=== PATIENT | female | born 1990 | race Two or more races ===

== ENCOUNTER 2023-07-31 20:36 | Emergency (ER) | payer SELFPAY ==
[2023-07-31 20:49] VITALS: BP 186/100; PULSE 96; TEMP 37.3; O2SAT 100; BMI 36.8
--- NOTE | 2023-07-31 21:54 | ED.GENADUL1 ---
HPI HPI - General Adult General Chief complaint: Urogenital-Female Stated complaint: HIV exposure Time Seen by Provider: 07/31/23 21:39 Source: patient Mode of arrival: walk-in Limitations: no limitations History of Present Illness HPI narrative: 33-year-old female presents because she was concerned about carla HIV. 48 hours ago she cleaned up some dried blood on the floor with an alcohol wipe. She did not have any cuts on her hands or elsewhere and she did not have any other exposure. She has no symptoms. Opioid HPI Opioid Management Most Recent Opioid Data: No Data to Display Review of Systems ROS Narrative A ten point review of systems is negative except as noted above. Exam Narrative Exam Narrative: Nurses note and vital signs reviewed and patient is not hypoxic. General: The patient appears well and in no apparent distress. Patient is resting comfortably on cart. Skin: Warm, dry, no pallor noted. There is no rash noted. Head: Normocephalic, atraumatic Eye: Normal conjunctiva, no drainage Ears, Nose, Mouth, and Throat: oral mucosa is moist. Nares patent. Cardiovascular: Regular Rate and Rhythm Respiratory: Patient is in no distress, no accessory muscle use Back: non-tender GI: Soft and nontender Musculoskeletal: The patient has no evidence of calf tenderness, no pitting edema, symmetrical pulses noted bilaterally Neurological: Awake and Psychiatric: Cooperative Constitutional Vital Signs, click to edit/add: Last Vital Signs Temp 99.1 F 07/31/23 20:49 Pulse 96 H 07/31/23 20:49 Resp 16 07/31/23 20:49 BP 186/100 H 07/31/23 20:49 Pulse Ox 100 07/31/23 20:49 O2 Del Method Room Air 07/31/23 20:49 Course Vital Signs Vital signs: Vital Signs Temperature 99.1 F 07/31/23 20:49 Pulse Rate 96 H 07/31/23 20:49 Respiratory Rate 16 07/31/23 20:49 Blood Pressure 186/100 H 07/31/23 20:49 Pulse Oximetry 100 07/31/23 20:49 Oxygen Delivery Method Room Air 07/31/23 20:49 Temperature 99.1 F 07/31/23 20:49 Pulse Rate 96 H 07/31/23 20:49 Respiratory Rate 16 07/31/23 20:49 Blood Pressure 186/100 H 07/31/23 20:49 Pulse Oximetry 100 07/31/23 20:49 Oxygen Delivery Method Room Air 07/31/23 20:49 Medical Decision Making MDM Narrative Medical decision making narrative: This patient did not have a significant exposure and does not require testing or PEP. She is discharged home and was reassured. Treatment diagnosis and follow-up were discussed with the patient. Discharge Plan Discharge Stand Alone Forms: Portal Instructions Chief Complaint: Urogenital-Female Clinical Impression: No problem, feared complaint unfounded Patient Disposition: Home, Self-Care Time of Disposition Decision: 21:46 Condition: Good Mode of Transportation: Private Vehicle Print Language: Indonesian Referrals: VALARIE CAMERON [Primary Care Provider] - 1 week
== END 2023-07-31 21:57 | disposition home or self-care (01) ==
PROVIDERS: Emergency Provider Emergency Medicine; PCP Family Medicine
DX: Z71.1 Person with feared health complaint in whom no diagnosis is made (principal)
CPT/HCPCS: 99281

== ENCOUNTER 2024-03-05 06:26 | Emergency (ER) | payer OTHER, SELFPAY ==
[2024-03-05 06:29] VITALS: BP 180/120; PULSE 94; TEMP 37.2; O2SAT 100; BMI 34.5
--- OUTSIDE RECORDS SUMMARY | 2024-03-05 06:36 | XMS_ITS | CCD ---
Author Organization [facility] Care Team Providers Care Engineering Surveyor Name Role Phone JEFF PARADA Attending Unavailable JEFF PARADA Consulting Unavailable JEFF PARADA Primary Care Unavailable JEFF PARADA Admitting Unavailable Jeff Parada DO Primary Care Provider [phone] JEFF PARADA Attending Unavailable JEFF PARADA Referring Unavailable JEFF PARADA Primary Care Unavailable CLIVE HORTON Attending Unavailable JEFF PARADA Referring Unavailable JEFF PARADA Primary Care Unavailable Jeff Parada MD Primary Care Provider [phone] JEFFERY MASON Attending Unavailable Allergies Allergy Classification Reported Allergen(s) Allergy Type Date of Onset Reaction(s) Facility (2 sources) Lisinopril; Translations: [LISINOPRIL] Drug Allergy 02-02-2021 [facility] Work Phone: Medications Current Medications Medication Drug Class(es) Dates Sig (Normalized) Sig (Original) Calcium Carb-Cholecalciferol (CALCIUM CARBONATE-VITAMIN D3 PO) (2 sources) take 1 tablet by mouth in the morning Calcium Carb-Cholecalciferol (CALCIUM CARBONATE-VITAMIN D3 PO) Take 1 tablet by mouth in the morning and 1 tablet in the evening. Take with meals. Active calcium carbonate 1250 mg / cholecalciferol 200 unt oral tablet (1 source) Vitamin D take 1 tablet by mouth once daily in the morning, then take 1 tablet by mouth once at mealtime calcium carbonate-vitamin D3 (CALCIUM 500 + D) 500 mg(1,250mg) -200 units per tablet Take 1 tablet by mouth in the morning and 1 tablet in the evening. Take with meals. Active cetirizine hydrochloride 10 mg oral tablet (3 sources) Histamine-1 Receptor Antagonist Start: 10-20-202 4 cetirizine (ZyrTEC) 10 MG tablet Take 10 mg by mouth 12/10/2023 Active cyclobenzaprine hydrochloride 10 mg oral tablet (3 sources) Muscle Relaxant Start: 4 End: 4 take 1 tablet by mouth every eight hours as needed cyclobenzaprine (Flexeril) 10 MG tablet Take 10 mg by mouth every 8 (eight) hours if needed for muscle spasms 09/07/2023 Active DULoxetine 30 mg delayed release oral capsule (3 sources) Serotonin and Norepinephrine Reuptake Inhibitor Start: 4 End: 4 take 1 capsule by mouth in the morning DULoxetine (Cymbalta) [address] capsule TAKE 1 CAPSULE (30 MG TOTAL) BY MOUTH IN THE MORNING 09/07/2023 Active fluconazole 150 mg oral tablet (3 sources) Azole Antifungal Start: 4 End: 4 take 1 tablet by mouth in the morning fluconazole (Diflucan) 150 MG tablet TAKE 1 TABLET (150 MG TOTAL) BY MOUTH IN THE MORNING FOR 7 DOSES. 01/03/2024 Active methylPREDNISolone (1 source) Corticosteroid Start: 4 methylPREDNISolone (MEDROL, LIZ,) 4 mg tablet Indications: Dermatitis follow package directions 21 tablet 01/03/2024 Active mometasone furoate 1 mg/ml topical cream (4 sources) Corticosteroid Start: 4 mometasone (Elocon) 0.1 % cream Apply 1 application topically Daily 01/03/2024 Active Start: 01-03-2024 mometasone (EL BRIANA) 0.1 % cream Indications: Dermatitis Apply topically daily. 45 g 1 01/03/2024 Active Start: 11-13-2023 End: 01-03-2024 mometasone (ELOCON) 0.1 % cr eam APPLY A THIN FILM TO THE AFFECTED AREAS ON ARMS BY TOPICAL ROUTE TWICE DAILY NEEDED AVOID FACE 11/13/2023 01/03/2024 Discontinued (Reorder) vit 10-iron fum-folic 65-1 mg tablet (1 source) Start: 05-18-2021 take 1 tablet by mouth in the morning vit 10-iron fum-folic 65-1 mg tablet Indications: History of sleeve gastrectomy , Postsurgical malabsorption , Malnutrition following gastrointestinal surgery Take 1 tablet by mouth in the morning. 90 tablet 3 05/18/2021 Active valACYclovir 1000 mg oral tablet (3 sources) Herpesvirus Nucleoside Analog DNA Polymerase Inhibitor, Herpes Simplex Virus Nucleoside Analog DNA Polymerase Inhibitor, Herpes Zoster Virus Nucleoside Analog DNA Polymerase Inhibitor Start: 09-07-2023 valACYclovir (Valtrex) 1 g tablet Take 2,000 mg by mouth in the morning and 2,000 mg in the evening. 09/07/2023 Active Start: 09-07-2023 take 2 tablets by mo uth in the morning, then take 2 tablets by mouth at bedtime valACYclovir (VALTREX) 1000 mg tablet Indications: Herpesviral gingivostomatitis and pharyngotonsillitis Take 2 tablets (2,000 mg total) by mouth in the morning and 2 tablets (2,000 mg total) before bedtime. 12 tablet 5 09/07/2023 Active vitamin b12 1 mg sublingual tablet (1 source) Vitamin B12 Start: 05-12-2021 take 1 tablet under the tongue in the morning cyanocobalamin (VITAMIN B12) 1,000 mcg tablet, sublingual Indications: History of sleeve gastrectomy , Postsurgical malabsorption , Malnutrition following gastrointestinal surgery , Vitamin B12 deficiency Place 1 tablet (1,000 mcg total) under the tongue in the morning. 90 tablet 3 05/12/2021 Active Completed/Discontinued Medications Medication Drug Class(es) Dates Sig (Normalized) Sig (Original) docusate sodium 100 mg oral capsule (1 source) End: 01-03-2024 take 1 capsule by mouth in the morning, then take 1 capsule by mouth at bedtime docusate sodium (COLACE) 100 mg capsule Take 1 capsule (100 mg total) by mouth in the morning and 1 capsule (100 mg total) before bedtime. 01/03/2024 Discontinued (Therapy completed) phentermine hydrochloride 37.5 mg oral capsule (1 source) Sympathomimetic Amine Anorectic Start: 09-07-2023 End: 01-03-2024 take 34-34.9 capsules by mouth once daily before breakfast phentermine 37.5 MG capsule Indications: Class 1 obesity due to excess calories without serious comorbidity with body mass index (BMI) of 34.0 to 34.9 in adult Take 1 capsule (37.5 mg total) by mouth every morning before breakfast. 30 capsule 09/07/2023 01/03/2024 Discontinued (Therapy completed) Problems Active Problems Problem Classification Problem Date Documented Date Episodic/Chronic Allergic reactions (2 sources) Flexural atopic dermatitis; Translations: [Other atopic dermatitis] 01-31-2024 Chronic Allergic reactions (2 sources) Inflammatory dermatosis; Translations: [Dermatitis, unspecified] Onset: 01-03-2024 01-03-2024 Episodic Anxiety disorders (1 source) Anxiety; Translations: [Anxiety disorder, unspecified] Onset: 09-07-2015 02-02-2021 Chronic Esophageal disorders (1 source) Gastroesophageal reflux disease without esophagitis; Translations: [Gastro-esophageal reflux disease without esophagitis] Onset: 01-16-2018 02-02-2021 Chronic Mood disorders (1 source) Depressive disorder; Translations: [Depressive disorder] Onset: 09-07-2015 02-02-2021 Chronic Other nutritional; endocrine; and metabolic disorders (1 source) Other obesity due to excess calories; Translations: [Other obesity due to excess calories] Onset: 09-07-2023 Chronic Other nutritional; endocrine; and metabolic disorders (1 source) Body mass index (BMI) 34.0-34.9, adult; Translations: [Body mass index (BMI) 34.0-34.9, adult] Onset: 09-07-2023 Chronic Other upper respiratory infections (1 source) Acute pharyngitis, unspecified; Translations: [ACUTE PHARYNGITIS UNSPECIFIED] Onset: 02-13-2020 Episodic Unclassified (1 source) COVID-19; Translations: [COVID-19] Onset: 02-13-2020 Unclassified (1 source) Rash Onset: 01-03-2024 Unclassified (1 source) Annual Exam Onset: 09-07-2023 Past or Other Problems Problem Classification Problem Date Documented Date Episodic/Chronic Bacterial infection; unspecified site (1 source) Bacteria present; Translations: [Streptococcus, group B, as the cause of diseases classified elsewhere] Onset: 8 Resolved: 8 07-06-2017 Episodic Heart valve disorders (1 source) Cardiac murmur, unspecified; Translations: [Cardiac murmur, unspecified] Onset: Episodic Immunizations and screening for infectious disease (4 sources) Contact with and (suspected) exposure to other viral communicable diseases; Translations: [Antibody studies abnormal] Onset: 0 07-07-2021 Episodic Malaise and fatigue (1 source) Fatigue; Translations: [Other fatigue] Onset: 8 01-16-2018 Episodic Mood disorders (1 source) Mood disorders Onset: 4 01-03-2024 Other bone disease and musculoskeletal deformities (1 source) Somatic dysfunction of thoracic region; Translations: [Segmental and somatic dysfunction of thoracic region] Onset: 4 09-07-2023 Episodic Other bone disease and musculoskeletal deformities (1 source) Cervical somatic dysfunction; Translations: [Segmental and somatic dysfunction of cervical region] Onset: 4 09-07-2023 Episodic Other bone disease and musculoskeletal deformities (1 source) Segmental and somatic dysfunction of cervical region; Translations: [Segmental and somatic dysfunction of cervical region] Onset: 4 Episodic Other bone disease and musculoskeletal deformities (1 source) Segmental and somatic dysfunction of thoracic region; Translations: [Segmental and somatic dysfunction of thoracic region] Onset: 4 Episodic Other nutritional; endocrine; and metabolic disorders (1 source) Body mass index 40+ - severely obese; Translations: [Morbid (severe) obesity due to excess calories] Onset: 8 Resolved: 2 05-11-2021 Chronic Other nutritional; endocrine; and metabolic disorders (1 source) Morbid obesity; Translations: [Morbid (severe) obesity due to excess calories] Onset: 2 Resolved: 2 05-11-2021 Chronic Other nutritional; endocrine; and metabolic disorders (1 source) Obese class II; Translations: [Obesity, Class II, BMI 35-39.9] Onset: 2 Resolved: 2 11-23-2021 Chronic Other screening for suspected conditions (not mental disorders or infectious disease) (1 source) Partial thromboplastin time increased; Translations: [Abnormal coagulation profile] Onset: 2 07-07-2021 Episodic Residual codes; unclassified (1 source) History of sleeve gastrectomy; Translations: [Acquired absence of stomach [part of]] Onset: 2 11-23-2021 Episodic Unclassified (1 source) Onset: 4 01-03-2024 Viral infection (1 source) Herpesviral gingivostomatitis and pharyngotonsillitis; Translations: [Herpesviral gingivostomatitis and pharyngotonsillitis] Onset: 4 Episodic Results Test Name Value Interpretation Reference Range Facil ity [facility] Covid-19 DETECTED Abnormal NOT DETECTED The [facility] Comment on above: Result Comment: This test is not yet approved or cleared by the [place] FDA. When there are no FDA-approved or cleared tests available, and other criteria are met, FDA can make tests available under an emergency access mechanism called an Emergency Use Authorization (EUA). The EUA for this test is supported by the Research Program Internship of Health and Human Service's (HHS's) declaration that circumstances exist to justify the emergency use of in vitro diagnostics for the detection and/or diagnosis of the virus that causes COVID-19. This EUA will remain in effect (meaning this test can be used) for the duration of the COVID-19 declaration justifying emergency of IVDs, unless it is terminated or revoked by FDA (after which the test may no longer be used). Performed By: #### [facility] #### [facility] [address] [place] [address] Viki Healy EUA Statement SEE BELOW Normal The [facility] Comment on above: Result Comment: This test is not yet approved or cleared by the [place] FDA. When there are no FDA-approved or cleared tests available, and other criteria are met, FDA can make tests available under an emergency access mechanism called an Emergency Use Authorization (EUA). The EUA for this test is supported by the [place] of Health and Human Service?s (HHS?s) declaration that circumstances exist to justify the emergency use of in vitro diagnostics for the detection and/or diagnosis of the virus that causes COVID-19. This EUA will remain in effect (meaning this test can be used) for the duration of the COVID-19 declaration justifying emergency of IVDs, unless it is terminated or revoked by FDA (after which the test may no longer be used). When diagnostic testing is negative, the possibility of a false negative should be considered in the context of a patients recent exposures and the presence of clinical signs and symptoms consistent with SARS-CoV-2. Performed By: #### [facility] #### [facility] [address] [place], [place] [id number] Viki Healy Vital Signs Date Time Vital Sign Value Performing Clinician Facility 01-31-2024 14:29-0500 Body height 144.8 cm Jeffery Mason MD Work Phone: [facility] 01-31-2024 14:29-0500 Body mass index (BMI) [Ratio] 37 kg/m2 Jeffery Mason MD Work Phone: [facility] 01-31-2024 14:29-0500 Body weight 77.56 kg Jeffery Mason MD Work Phone: [facility] 01-03-2024 14:03-0500 Body height 149.9 cm Clive Horton APRN-RECORDS AND INFORMATION MANAGER Work Phone: [facility] 01-03-2024 14:03-0500 Body mass index (BMI) [Ratio] 34.78 kg/m2 Clive Horton COMPUTER DISCOVERY TEACHER-RECORDS AND INFORMATION MANAGER Work Phone: [facility] 01-03-2024 14:03-0500 Body temperature 98.71 [degF] Clive Horton COMPUTER DISCOVERY TEACHER-RECORDS AND INFORMATION MANAGER Work Phone: [facility] 01-03-2024 14:03-0500 Body weight 78.11 kg Cliverod Horton COMPUTER DISCOVERY TEACHER-RECORDS AND INFORMATION MANAGER Work Phone: [facility] 01-03-2024 14:03-0500 Diastolic blood pressure 88 mm[Hg] Clive Horton APRN-RECORDS AND INFORMATION MANAGER Work Phone: [facility] 01-03-2024 14:03-0500 Heart rate 83 /min Clive Horton APRN-RECORDS AND INFORMATION MANAGER Work Phone: [facility] 01-03-2024 14:03-0500 Respiratory rate 18 /min Clive Horton APRN-RECORDS AND INFORMATION MANAGER Work Phone: [facility] 01-03-2024 14:03-0500 SaO2% (BldA) [Mass fraction] 100 % Clive Horton MELANIE-RECORDS AND INFORMATION MANAGER Work Phone: [facility] 01-03-2024 14:03-0500 Systolic blood pressure 140 mm[Hg] Clive Horton MELANIE-RECORDS AND INFORMATION MANAGER Work Phone: [facility] Encounters Encounter Date Encounter Type Care Provider Facility Start: 01-31-2024 End: 01-31-2024 Office outpatient new 30 minutes Jeffery Mason MD Work Phone: [facility] Comment on above: Flexural atopic derm atitis (Primary Dx) Start: 01-31-2024 End: 01-31-2024 ambulatory JEFFERY MASON Not Available Start: 01-31-2024 End: 01-31-2024 Bamboo flowsheet Jeffery Mason MD Work Phone: [facility] Start: 01-31-2024 End: 01-31-2024 Bamboo flowsaniceto Mason MD Work Phone: [facility] Start: 01-03-2024 End: 01-03-2024 Office outpatient visit 15 minutes Clive Tish Horton APRN-RECORDS AND INFORMATION MANAGER Work Phone: [facility] Comment on above: Dermatitis (Primary Dx) Start: 01-03-2024 End: 01-03-2024 ambulatory [facility] Start: 09-07-2023 End: 09-07-2023 ambulatory [facility] Start: 09-07-2023 Encounter for genera l adult medical examination without abnormal findings [facility] Start: 01-28-2020 End: 01-29-[address] [facility] Facility:H1 Procedures Date Procedure Procedure Detail Performing Clinician Start: 01-03-2024 Adult depression scr eening assessment Clive Salassamson NAVARRO-RECORDS AND INFORMATION MANAGER Work Phone: Start: 02-02-2021 Microscopic observat ion [Identifier] in Cervix by Cyto stain Clive ALLEN Work Phone: Plan of Treatment Date Care Activity Detail Author Start: 01-02-2025 Adult BMI Screening Adult BMI Screen ing [facility] Start: 01-02-2025 Depression Screening Depression Scre ening [facility] Start: 01-02-2025 Screening for malign ant neoplasm of cervix [facility] Start: 01-02-2025 Tobacco Screening Tobacco Screening [facility] Start: 03-18-2024 End: 03-18-2024 Patient encounter procedure 03/18/2024 3:20 PM EST Office Visit [facility] [address] [place] [phone] Jeffery Mason MD [address] [place] [address] [facility] Start: 03-13-2024 End: 03-13-2024 Patient encounter procedure 03/13/2024 2:20 PM EST Office Visit [facility] [address] [place] [phone] Jeffery Mason MD [address] [place] [address] [facility] Start: 03-11-2024 End: 03-11-2024 Patient encounter procedure 03/11/2024 2:20 PM EST Office Visit [facility] [address] [place] [phone] Jeffery Mason MD [address] [place] [address] [facility] Start: 02-03-2024 Screening for malign ant neoplasm of cervix Pap Smear [facility] Start: 01-31-2024 End: 01-31-2024 Patient encounter procedure 01/31/2024 2:20 PM EST Office Visit [facility] [address] [place] [phone] Jeffery Mason MD [address] [place] [address] Arrived [facility] Comment on above: Arrived Start: 10-22-2023 COVID-19 Vaccine () COVID-19 Vaccine () [facility] Start: 10-22-2023 Influenza vaccination P [facility] Start: 01-29-2023 DTaP,Tdap and Td Vaccines (7 - Td or Tdap) DTaP,Tdap and Td Vaccines (7 - Td or Tdap) [facility] Start: 01-26-2009 Screening for malign ant neoplasm of cervix Pap Smear [facility] Start: 01-26-2006 Adult BMI Follow Up Plan Adult BMI Follow Up Plan [facility] Immunizations Immunization Date Immunization Notes Care Provider Fa [facility] 12-14-2022 tuberculin skin test ; purified protein derivative solution, intradermal Clive Horton COMPUTER DISCOVERY TEACHER-RECORDS AND INFORMATION MANAGER Work Phone: [facility] 03-06-2021 Covid-19, Mrna, Lnp- s, Pf, 30 Mcg/0.3 Ml Dose, Darrius-sucrose Clive Horton COMPUTER DISCOVERY TEACHER-RECORDS AND INFORMATION MANAGER Work Phone: [facility] 03-06-2021 Seasonal, quadrivalent, recombinant, injectable influenza vaccine, preservative free Clive Horton COMPUTER DISCOVERY TEACHER-RECORDS AND INFORMATION MANAGER Work Phone: [facility] 03-06-2021 influenza virus vaccine, unspecified formulation Clive Horton COMPUTER DISCOVERY TEACHER-RECORDS AND INFORMATION MANAGER Work Phone: [facility] 02-22-2021 COVID-19, mRNA, LNP- S, PF, 30mcg/0.3mL Dose Clive Horton COMPUTER DISCOVERY TEACHER-RECORDS AND INFORMATION MANAGER Work Phone: [facility] 12-16-2020 influenza, injectabl e, quadrivalent, contains preservative Clive Horton COMPUTER DISCOVERY TEACHER-RECORDS AND INFORMATION MANAGER Work Phone: [facility] 12-11-2020 COVID-19, mRNA, LNP- S, PF, 30mcg/0.3mL Dose Clive Horton COMPUTER DISCOVERY TEACHER-RECORDS AND INFORMATION MANAGER Work Phone: [facility] 12-06-2019 influenza, injectabl e, quadrivalent, preservative free Clive Horton COMPUTER DISCOVERY TEACHER-RECORDS AND INFORMATION MANAGER Work Phone: [facility] 01-21-2016 influenza virus vaccine, unspecified formulation Clive Horton COMPUTER DISCOVERY TEACHER-RECORDS AND INFORMATION MANAGER Work Phone: [facility] 02-22-2013 varicella virus vaccine Clive Horton COMPUTER DISCOVERY TEACHER-RECORDS AND INFORMATION MANAGER Work Phone: [facility] 01-29-2013 tetanus toxoid, reduced diphtheria toxoid, and acellular pertussis vaccine, adsorbed Clive Horton COMPUTER DISCOVERY TEACHER-RECORDS AND INFORMATION MANAGER Work Phone: [facility] 01-25-2013 tetanus toxoid, reduced diphtheria toxoid, and acellular pertussis vaccine, adsorbed Clive Horton COMPUTER DISCOVERY TEACHER-RECORDS AND INFORMATION MANAGER Work Phone: [facility] 10-06-2000 hepatitis B vaccine, pediatric or pediatric/adolescent dosage Clive Horton COMPUTER DISCOVERY TEACHER-RECORDS AND INFORMATION MANAGER Work Phone: [facility] 05-08-2000 hepatitis B vaccine, pediatric or pediatric/adolescent dosage Clive Horton COMPUTER DISCOVERY TEACHER-RECORDS AND INFORMATION MANAGER Work Phone: [facility] 04-07-2000 hepatitis B vaccine, pediatric or pediatric/adolescent dosage Clive Horton COMPUTER DISCOVERY TEACHER-RECORDS AND INFORMATION MANAGER Work Phone: [facility] 04-07-2000 measles, mumps and rubella virus vaccine Clive Horton COMPUTER DISCOVERY TEACHER-RECORDS AND INFORMATION MANAGER Work Phone: [facility] 10-08-1992 diphtheria, tetanus toxoids and pertussis vaccine Clive Horton COMPUTER DISCOVERY TEACHER-RECORDS AND INFORMATION MANAGER Work Phone: [facility] 10-08-1992 trivalent poliovirus vaccine, live, oral Clive Horton COMPUTER DISCOVERY TEACHER-RECORDS AND INFORMATION MANAGER Work Phone: [facility] 05-03-1989 diphtheria, tetanus toxoids and pertussis vaccine Clive Horton COMPUTER DISCOVERY TEACHER-RECORDS AND INFORMATION MANAGER Work Phone: [facility] 05-03-1989 measles, mumps and rubella virus vaccine Clive Horton COMPUTER DISCOVERY TEACHER-RECORDS AND INFORMATION MANAGER Work Phone: [facility] 05-03-1989 trivalent poliovirus vaccine, live, oral Clive Horton COMPUTER DISCOVERY TEACHER-RECORDS AND INFORMATION MANAGER Work Phone: [facility] 1988 trivalent poliovirus vaccine, live, oral Clive Horton COMPUTER DISCOVERY TEACHER-RECORDS AND INFORMATION MANAGER Work Phone: [facility] 1988 diphtheria, tetanus toxoids and pertussis vaccine Clive Horton COMPUTER DISCOVERY TEACHER-RECORDS AND INFORMATION MANAGER Work Phone: [facility] 1988 trivalent poliovirus vaccine, live, oral Clive Horton COMPUTER DISCOVERY TEACHER-RECORDS AND INFORMATION MANAGER Work Phone: [facility] 1988 diphtheria, tetanus toxoids and pertussis vaccine Clive Horton COMPUTER DISCOVERY TEACHER-RECORDS AND INFORMATION MANAGER Work Phone: [facility] 1988 trivalent poliovirus vaccine, live, oral Clive Horton COMPUTER DISCOVERY TEACHER-RECORDS AND INFORMATION MANAGER Work Phone: [facility] NEGATED: Highlighted row has not occurred!05-27-2017 measles, mumps and rubella virus vaccine Clive Horton COMPUTER DISCOVERY TEACHER-RECORDS AND INFORMATION MANAGER Work Phone: [facility] Comment on above: Deferred: - pt immun e NEGATED: Highlighted row has not occurred!05-27-2017 tetanus toxoid, reduced diphtheria toxoid, and acellular pertussis vaccine, adsorbed Clive Horton COMPUTER DISCOVERY TEACHER-RECORDS AND INFORMATION MANAGER Work Phone: [facility] NEGATED: Highlighted row has not occurred!05-27-2017 varicella virus vaccine Clive Horton COMPUTER DISCOVERY TEACHER-RECORDS AND INFORMATION MANAGER Work Phone: [facility] Payers Date Payer Category Payer [employer] [id number] 2022 [employer] - PPO ANTHEM [id number] 2022 Unknown [id number] 1988 Unknown [id number] 1988 Unknown [id number] 1988 Unknown [id number] 1988 Unknown [id number] 1959 Unknown [id number] Social History Date Type Detail Facility Start: 03-01-2017 End: 01-31-2024 Tobacco smoking status NHIS Never smoked tobacco [facility] Start: 03-01-2017 End: 01-31-2024 Tobacco use and exposure Smokeless tobacco non-user [facility] Start: 01-03-2024 Alcoholic beverage intake Ex-drinker (finding) [facility] Start: 09-07-2023 End: 01-31-2024 History of Social function [facility] Start: 09-07-2023 End: 01-31-2024 [facility] Utilities [facility] Has the [employer], or water [employer] threatened to shut off services in your home in past 12Mo No [facility] Are you now , , , , never or living with a partner? [facility] How often to you hav e a drink containing alcohol? 2-4 times a month [facility] How many standard drinks containing alcohol do you have on a typical day? 1 or 2 [facility] How often do you hav e 6 or more drinks on 1 occasion? Never [facility] How hard is it for y ou to pay for the very basics like food, housing, medical care, and heating Not hard at all [facility] Do you feel stress - tense, restless, nervous, or anxious, or unable to sleep at night because your mind is troubled all the time - these days [OSQ] To some extent [facility] Start: 04-27-2021 Education 17 [facility] Start: 1990 Sex assigned at Not on file P [facility] Start: 09-25-2014 Sex Female (finding) [facility] Tobacco smoking stat us NHIS Tobacco smoking consumption unknown [facility] Goals Date Patient Goal Desired Activity /State Personal health goal Comment on above: Formatting of this n ote might be different from the original. Evaluation of progress towards goal: Home with [facility], telehealth. [facility] tasked with sending CRF. History of Present illness Narrative 01-31-2024 Jeffery Mason MD - 01/31/2024 2:20 PM EST Note Date & Type Note Facility 01-31-2024 History of Presen t illness Narrative Valeria Mcclain is a very pleasant 34 y.o. year old female who comes to the office today with the chief complaint of rash. Her rash started in 2021 after gastric sleeve surgery while receiving Lovenox on her abdomen. Her rash got better with oral and topical steroids and did not recur until she got a tattoo approximately 1 year later. It recurred on the arm and again resolved with topical and oral steroids. The rash is itchy and vesicular. She has no known food or environmental allergy. She is not on any oral meds currently. The rash is itchy but not painful. Mometasone and triamcinolone make her about half better. The patient denies having any typical allergic triggers for these nasal symptoms such as animal dander, dusting, vacuuming or mowing the lawn.The patient denies having any seasonal pattern to these allergy symptoms but instead notes the symptoms tend to be present year round with little seasonal variation. EXAM The patient appears comfortable in the office today. Lungs are clear to auscultation bilaterally. The oral mucosa is pink and healthy without any lesions or ulcers. The palate elevates in the midline. The nasal mucosa is pink and healthy. There is no epistaxis mucopus or nasal polyposis noted. The nasal septum is approximately in the midline. The skin is notable for dry, red, scaly, itchy skin on the lower and upper back. IMPRESSION: Atopic dermatitis - We agreed she would try a bleach bath which I described for her in detail in the office today followed by rinsing in the shower with body wash then application of her triamcinolone followed by mineral oil. We discussed the risks and benefits of performing patch testing and she would like to follow up to perform this in the near future. I let her know that the risk of food allergy or environmental allergy contributing to her symptoms is rather low so we agreed to defer on this testing for the time being. documented in this encounter [facility] History of Present illness Narrative 01-03-2024 Clive Horton APRN-RECORDS AND INFORMATION MANAGER - 01/03/2024 2:00 PM EST Note Date & Type Note Facility 01-03-2024 History of Present illness Narrative Images from the original note were not included. [address] [place] [id number] SUBJECTIVE: Patient ID: Valeria Mcclain is a 33 y.o. female. Chief Complaint Patient presents with Rash Rash since aug Presents with red and itchy rash around her waistline and top of right breast. She reports she had this before several years ago. Not sure if it was new detergent (Purex) she used several months ago. She has since switched back to Gain, what she normally uses and rash is still present. She also changed type of underwear she was wearing, thinking the elastic / lace was causing it. Is currently using mometasone cream to area with limited results. The following portions of the patient's history were reviewed and updated as appropriate: allergies, current medications, past family history, past medical history, past social history, past surgical history and problem list. Past Surgical History: Procedure Laterality Date CHOLECYSTECTOMY 2012 LAPAROSCOPIC REPAIR HERNIA HIATAL N/A 05/03/2021 Performed by Brock Jenkins MD at [facility] LAPAROSCOPIC SALPINGECTOMY Bilateral 05/03/2021 Performed by Casimiro Kim MD at [facility] LAPAROSCOPIC SLEEVE GASTRECTOMY N/A 05/03/2021 Performed by Brock Jenkins MD at [facility] Past Medical History: Diagnosis Date Allergic rhinitis Anxiety COVID-19 11/2020,01/2020 Depression Elevated partial thromboplastin time (PTT) due to lupus anticoagulant GERD (gastroesophageal reflux disease) Gestational diabetes with previous Hiatal hernia Hypertension Lupus anticoagulant positive Obesity Immunization History Administered Date(s) Administered COVID-19, mRNA, LNP-S, PF, 30mcg/0.3mL Dose 11/11/2020, 12/11/2020, 02/22/2021 Covid-19, Mrna, Lnp-s, Pf, 30 Mcg/0.3 Ml Dose, Darrius-sucrose 03/06/2021 DTP 1988, 1988, 05/03/1989, 10/08/1992 Hep B, Adolescent or Pediatric 04/07/2000, 05/08/2000, 10/06/2000 Influenza, Injectable, Quadrivalent 12/16/2020 Influenza, Injectable, quadrivalent (PF) 12/06/2019 Influenza, Recombinant, Quadrivalent, Injectable, Preserv 03/06/2021 Influenza, Unspecified 01/21/2016 MMR 05/03/1989, 04/07/2000 OPV 1988, 1988, 1988, 05/03/1989, 10/08/1992 PPD Test 12/14/2022 Tdap 01/25/2013, 01/29/2013 Varicella 02/22/2013 REVIEW OF SYSTEMS: Review of Systems Constitutional: Negative for chills and fever. HENT: Negative. Eyes: Negative for visual disturbance. Respiratory: Negative for chest tightness and shortness of breath. Cardiovascular: Negative for chest pain and palpitations. Gastrointestinal: Negative. Endocrine: Negative. Genitourinary: Negative for menstrual problem and pelvic pain. Musculoskeletal: Negative. Skin: Positive for rash. Allergic/Immunologic: Negative. Neurological: Negative for syncope and facial asymmetry. Hematological: Does not bruise/bleed easily. Psychiatric/Behavioral: Negative. PHYSICAL EXAMINATION: Vitals: 01/03/24 1403 BP: 140/88 BP Site: Left Arm BP Postition: Sitting BP CUFF SIZE: L (13-17 inches) Pulse: 83 Resp: 18 Temp: 37.1 C (98.7 F) TempSrc: Oral SpO2: 100% Weight: 78.1 kg (172 lb 3.2 oz) Height: 149.9 cm (4' 11 ) Patient noted to have elevated BMI and the following intervention(s) were applied: encouragement to exercise. Physical Exam Vitals and nursing note reviewed. Constitutional: General: She is not in acute distress. Appearance: She is well-developed. She is not diaphoretic. HENT: Head: Normocephalic and atraumatic. Right Ear: Tympanic membrane and external ear normal. Left Ear: Tympanic membrane and external ear normal. Nose: Nose normal. Mouth/Throat: Mouth: Mucous membranes are moist. Pharynx: No oropharyngeal exudate. Eyes: General: Right eye: No discharge. Left eye: No discharge. Conjunctiva/sclera: Conjunctivae normal. Pupils: Pupils are equal, round, and reactive to light. Neck: Thyroid: No thyromegaly. Vascular: No JVD. Cardiovascular: Rate and Rhythm: Regular rhythm. Heart sounds: Normal heart sounds. No murmur heard. No friction rub. No gallop. Pulmonary: Effort: Pulmonary effort is normal. Breath sounds: Normal breath sounds. Abdominal: General: Bowel sounds are normal. There is no distension. Palpations: Abdomen is soft. There is no mass. Tenderness: There is no abdominal tenderness. Musculoskeletal: General: Normal range of motion. Cervical back: Normal range of motion and neck supple. Lymphadenopathy: Cervical: No cervical adenopathy. Skin: General: Skin is warm and dry. Capillary Refill: Capillary refill takes less than 2 seconds. Comments: Scattered erythema. Neurological: Mental Status: She is alert and oriented to person, place, and time. Deep Tendon Reflexes: Reflexes are normal and symmetric. Psychiatric: Mood and Affect: Mood normal. Behavior: Behavior normal. Thought Content: Thought content normal. Judgment: Judgment normal. ASSESSMENT/PLAN: Valeria was seen today for rash. Diagnoses and all orders for this visit: Dermatitis - mometasone (ELOCON) 0.1 % cream; Apply topically daily. - methylPREDNISolone (MEDROL, LIZ,) 4 mg tablet; follow package directions - fluconazole (DIFLUCAN) 150 mg tablet; Take 1 tablet (150 mg total) by mouth in the morning for 7 doses. Discussed at length. Patient has the rash for greater than 3 months. Has also had same rash several years ago. Suspect possibly fungal or allergic reaction to specific fiber in clothing. Start fluconazole and Medrol dose pack May continue to use mometasone as directed PRN If rash does not completely resolve, we did discuss dermatology referral. ALL QUESTIONS ANSWERED Total time spent was 25 minutes: Preparing to see the patient (e.g., review of tests) Obtaining and/or reviewing separately obtained history Performing a medically appropriate examination and/or evaluation Counseling and educating the patient/family/caregiver Ordering medications, tests, or procedures Follow-up: Next scheduled ALEJANDRO [facility] 01/03/24 [id number] documented in this encounter [facility] Evaluation note Note Date & Type Note Facility Evaluation note Diagnosis Dermatitis- Primary Contact dermatitis and other eczema, due to unspecified cause documented in this encounter [facility] Evaluation note Note Date & Type Note Facility Evaluation note Diagnosis Flexural atopic dermatitis- Primary Other atopic dermatitis and related conditions documented in this encounter [facility] Instructions Attachments Note Date & Type Note Facility Instructions The following attachments cannot be sent through Care Everywhere.Contact dermatitis (South African)documented in this encounter [facility] Summary Purpose Family History No Family History Records FoundNo Family History Records FoundNo Family History Records Found Advance Directives No Advanced Directives Records Found Date Activated Date Inactivated Comments 05/03/2021 8:18 PM 05/04/2021 1:55 PM Date Activated Date Inactivated Comments 05/24/2017 1:20 PM 05/27/2017 6:59 PM Additional Source Comments INFORMATION SOURCE (unrecogn ized section and content) DATE CREATED AUTHOR 02/13/2020 [facility] DATE CREATED AUTHOR AUTHOR'S ORGANIZ ATION 01/05/2024 [facility] DATE CREATED AUTHOR AUTHOR'S ORGANIZ ATION 02/03/2024 [facility] EPIC Reason for Visit (unrecogniz ed section and content) Reason Comments Rash Rash since sep Reason Comments new patient Pt states she first got a rash on her stomach in 2021. Then last summer she got a rash on her elbow, stomach, breast and back. She thinks it is psoriasis. Pt took Zrytec today. Care Teams (unrecognized sec tion and content) Engineering Surveyor Relationship Specialty Start Date End Date Jeff Parada DO [address] [facility] [place] [address] PCP - General Family Medicine 01/30/17 Engineering Surveyor Relationship Specialty Start Date End Date Jeff Parada MD [address] [place] [facility] [place] [address] PCP - General Family Medicine 01/31/24 Engineering Surveyor Relationship Specialty Start Date End Date Jeff Parada MD [address] [place] [facility] [place] [address] PCP - General Family Medicine 01/31/24 FOR RECORDS PERTAINING TO PATIENTS WHO ARE OR HAVE BEEN ENROLLED IN A CHEMICAL DEPENDENCY/SUBSTANCEABUSE PROGRAM, SOME INFORMATION MAY BE OMITTED. This clinical summary was aggregated from multiple sources. Caution should be exercised in using it in the provision of clinical care. This summary normalizes information from multiple sources, and as a consequence, information in this document may materially change the coding, format and clinical context of patient data. In addition, data may be omitted in some cases. CLINICAL DECISIONS SHOULD BE BASED ON THE PRIMARY CLINICAL RECORDS. [facility]. provides no warranty or guarantee of the accuracy or completeness of information in this document.
--- NOTE | 2024-03-05 06:54 | ED.SKABFB1 ---
HPI - Skin/Abscess/Foreign Bdy General Chief complaint: Skin/Abscess/Foreign Body Stated complaint: SKIN IRRITATION Time Seen by Provider: 03/05/24 06:29 Source: patient Mode of arrival: walk-in Limitations: no limitations History of Present Illness HPI narrative: This 34-year-old female who states she has been seen multiple physicians including her family physician and urgent care and an computer technology teacher and is scheduled for skin testing next week presents for evaluation of a burning sensation on her upper back. The patient states that since August she has been having intermittent skin rashes. She has been on several rounds of steroids and steroid cream. Ultimately she was referred to an computer technology teacher. The patient states that she works from home and sits in an office chair. She states that when she is sitting in the chair the back of the chair rubs on her upper back area. She has been having a burning sensation in his upper back area where the chair rubs on her upper back as well as on her left arm where she has a tattoo. She states her has been applying lotion to the area. She denies any chest pain or shortness of breath. She denies any dizziness or syncope. She has no abdominal pain. She does have some mild erythema overlying her right lateral lower lumbar region. The patient has had a gastric sleeve in the past and is concerned that she has a vitamin deficiency. The patient also has a history of hypertension but states that after her gastric sleeve procedure her blood pressure has normalized and she does not need to be on any blood pressure medication at this time. I did talk to her about her elevated blood pressure upon arrival and she states that is because she is anxious about the burning sensation in her skin on her back. Related Data Home Medications ?Medication ?Instructions ?Recorded ?Confirmed calcium carbonate PO 03/05/24 lysine .ROUTE 03/05/24 mecobalamin (vitamin B12) 5,000 5,000 mcg PO DAILY 03/05/24 03/05/24 mcg chewable tablet Allergies Allergy/AdvReac Type Severity Reaction Status Date / Time No Known Drug Allergies Allergy Verified 03/05/24 06:39 Review of Systems ROS Status of ROS 10 or more systems reviewed and unremarkable except as noted in history and below PFSH PFSH Social History Little interest or pleasure in doing things: not at all Feeling down, depressed, or hopeless: not at all Exam Narrative Exam Narrative: Vital signs and Nursing Notes reviewed: Is afebrile with a normal pulse, blood pressure is elevated at 180/120, she is not hypoxic with pulse ox of 100% on room air General: Anxious adult female, no respiratory distress HEENT: Normocephalic atraumatic, mucous membranes are moist and pink, eyes are clear, normal conjunctiva, vision is grossly intact, posterior pharynx is normal in appearance. There are no oral lesions. There is no swelling of the tongue, uvula or pharyngeal soft tissues Neck: Supple, no meningeal signs, no anterior or posterior cervical lymphadenopathy Chest: Lungs are clear to auscultation with good air entry, there is no wheezing rhonchi or rales appreciated no accessory muscle use, patient is speaking in complete sentences-no chest wall tenderness to palpation CVS: Regular rate and rhythm S1-S2, no murmurs rubs or gallops, pulses are brisk and equal bilaterally ABD: Soft, nondistended, nontender, no rebound guarding or rigidity, bowel sounds are normal, no pulsatile masses appreciated-no skin rash noted on the abdominal wall stretch grover are noted on the lower abdominal wall Extremities: Moving all extremities, no lower extremity tenderness or swelling noted, negative Homans' sign, pulses are brisk and equal bilaterally Skin: Normal in appearance without rash,pallor, petechiae or purpura-the area of the patient's complaint is not erythematous, dry or otherwise notably abnormal. There are some small healed scars on each scapular area. There is no eruption, sign of shingles or other notable abnormality. The tattoo on her left upper arm is normal in appearance without any sign of cellulitis infection or other abnormality Neuro: No focal deficits Constitutional Vital Signs, click to edit/add: Last Vital Signs Temp 99.0 F 03/05/24 06:29 Pulse 94 H 03/05/24 06:29 Resp 16 03/05/24 06:29 BP 180/120 H 03/05/24 06:29 Pulse Ox 100 03/05/24 06:29 O2 Del Method Room Air 03/05/24 06:29 Course Vital Signs Vital signs: Vital Signs Temperature 99.0 F 03/05/24 06:29 Pulse Rate 94 H 03/05/24 06:29 Respiratory Rate 16 03/05/24 06:29 Blood Pressure 180/120 H 03/05/24 06:29 Pulse Oximetry 100 03/05/24 06:29 Oxygen Delivery Method Room Air 03/05/24 06:29 Temperature 99.0 F 03/05/24 06:29 Pulse Rate 94 H 03/05/24 06:29 Respiratory Rate 16 03/05/24 06:29 Blood Pressure 180/120 H 03/05/24 06:29 Pulse Oximetry 100 03/05/24 06:29 Oxygen Delivery Method Room Air 03/05/24 06:29 MDM - Skin/Abscess/Foreign Bdy MDM Narrative Medical decision making narrative: This 34-year-old female with a history of anxiety and hypertension who had gastric sleeve procedure in the past and states she has been seeing multiple physicians for skin rashes in different areas for the past 6 months and is scheduled to have skin testing with an computer technology teacher next week presents for evaluation of a burning sensation in her upper back and on her left arm where she has a tattoo. The patient was placed in to a gown by the nursing staff and I was able to evaluate her skin completely. There is a small area of erythematous skin on her right lateral lower back overlying some stretch grover but otherwise her skin is clean, dry with no sign of infestation, cellulitis, eruption, hives or any other abnormal findings. Specifically in the area of her complaint the skin is soft and supple and normal for her ethnicity. This was explained to her. She verbalizes understanding of this and requested a full battery of serum vitamin testing. I explained to her that we do not do this from the emergency department, it would be a send out and I would not know specifically what vitamins to order and she would be better off questioning her computer technology teacher or family physician regarding vitamin testing. She does not clinically have any sign of any severe vitamin deficiency. She was medicated with dose of Toradol for her discomfort. I explained to her that her symptoms are called the dysesthesia which is a discomfort in the skin which many people have this time of year since it is the middle of winter. She was encouraged to follow-up with her computer technology teacher and continue taking her current medications. With regard to her blood pressure she states she will follow-up with her family physician and get it rechecked but she feels that her elevated blood pressure today is due to her anxiety regarding the discomfort in her upper back. Discharge Plan Discharge Chief Complaint: Skin/Abscess/Foreign Body Clinical Impression: Dysesthesia, Elevated blood pressure reading Patient Disposition: Home, Self-Care Time of Disposition Decision: 06:53 Condition: Good Prescriptions / Home Meds: No Action mecobalamin (vitamin B12) 5,000 mcg tablet,chewable 5,000 mcg PO DAILY lysine .ROUTE calcium carbonate [Tums E-X] PO Print Language: Albanian Instructions: Paresthesia (ED) Additional Instructions: Continue using emollient cream on your back, wear light weight clothing and avoid prolonged positions to prevent your skin from touching surfaces for a prolonged period of time. Referrals: VALARIE CAMERON [Primary Care Provider] - 1 week Discharge Date/Time: 03/05/24 07:16
[2024-03-05] MEDS: KETOROLAC TROMETHAMINE 60 MG/2 ML VIAL IM (07:06)
== END 2024-03-05 07:16 | disposition home or self-care (01) ==
PROVIDERS: Emergency Provider Emergency Medicine; PCP Family Medicine
DX: R20.8 Other disturbances of skin sensation (principal); R03.0 Elevated blood-pressure reading, without diagnosis of hypertension; Z98.84 Bariatric surgery status
CPT/HCPCS: 96372; 99284; J1885